=== PATIENT | male | born 2000 | race Caucasian/White ===

== ENCOUNTER 2018-04-17 12:42 | Emergency (ER) | payer BC ==
[~2018-04-17] VITALS: Ht 182.9 cm; Wt 61.7 kg
[2018-04-17] MEDS ORDERED: ESCITALOPRAM OX10 MG (12:52)
[2018-04-17] MEDS ORDERED: AMITRIPTYLINE H10 MG (12:52)
[2018-04-18] MEDS ORDERED: ESCITALOPRAM OX10 MG (20:03)
[2018-04-18] MEDS ORDERED: ZOFRAN8 MG (20:03)
[2018-04-18] MEDS ORDERED: PROTONIX40 MG (20:04)
== END 2018-04-17 15:49 | disposition home or self-care (01) ==
LOC: ER 12:42
DX: K29.70 Gastritis, unspecified, without bleeding (principal); E11.9 Type 2 diabetes mellitus without complications

== ENCOUNTER → 2018-04-18 | Emergency (ER) | payer BC ==
[~2018-04-18] VITALS: Ht 182.9 cm; Wt 56.7 kg
[~2018-04-18] MED LIST: AMITRIPTYLINE H10 MG; ESCITALOPRAM OX10 MG; PROTONIX40 MG; ZOFRAN8 MG
== END | disposition home or self-care (01) ==
LOC: ER 19:38
DX: K29.60 Other gastritis without bleeding (principal)